=== PATIENT | female | born 1965 | race Caucasian/White ===

== ENCOUNTER → 2024-07-23 12:15 | Outpatient (REF) | payer BC, SELFPAY | LOC: HWWDC 12:15 | PROVIDERS: ATTENDING PHYSICIAN Internal Medicine | DX: Z12.31 Encounter for screening mammogram for malignant neoplasm of breast (principal) | CPT/HCPCS: 77063; 77067 ==

== ENCOUNTER 2024-08-08 10:09 | Emergency (ER) | payer BC, SELFPAY ==
[2024-08-08 10:10] VITALS: BP 198/103
[2024-08-08 10:48] LABS: ALT (SGPT) 172 U/L (0-35); AST (SGOT) 123 U/L (14-36); Albumin 4.7 g/dl (3.5-5.0); Alkaline Phosphatase 88 U/L (38-126); Blood Urea Nitrogen 16 mg/dl (7-17); Carbon Dioxide 25 mmol/L (22-30); Chloride 104 mmol/L (98-107); Glucose 119 mg/dl (70-99); Potassium 4.2 mmol/L (3.5-5.1); Sodium 139 mmol/L (135-145); Total Bilirubin 1.1 mg/dl (0.2-1.3); Total Protein 7.7 g/dl (6.3-8.2); eGFR > 60.00
--- NOTE | 2024-08-08 10:54 | ED.GENMED ---
History of Present Illness
General
Chief Complaint: Abnormal Lab Value
Time Seen by Provider: 08/08/24 10:35
History of Present Illness
History of Present Illness:
59-year-old female presents emergency department for evaluation of abnormal labs. She was seen by her primary care physician on Friday and had routine labs, was called this morning due to an elevated potassium of 6.3. She has no complaints. Does
not take any CARLOS inhibitors, ARB's, or diuretics.
Past History
Past History
ED Past Medical History: HTN and Hypothyroidism
ED Past Surgical History: None
Social History
Tobacco: Non-smoker
Alcohol: None
Living: with family
Review of Systems
Review of Systems
Allergies reviewed?: Yes
All Other Systems: ROS reviewed and negative except as documented in HPI and ROS
Phy Exam
Physical Exam
Physical Exam:
GEN: Well appearing, NAD, WDWN
HEENT: Oral mucosa moist, no scleral icterus
Cardiac: Regular rate
Lung: No respiratory distress, no tachypnea
MSK: No gross deformity or injuries
Skin: Good color, no pallor or jaundice, no rashes
Neuro: AO x3, moves all extremities freely
Psych: Calm, cooperative
Course
Orders/Labs/Results
Orders:
Orders
08/08/24 10:13
EKG [Electrocardiogram (*1)] Urgent
Reason for Study: Fatigue / Weakness
08/08/24 10:14
EKG- Treatment ONCE
08/08/24 10:21
Comprehensive Metabolic Panel Urgent
Abnormal Lab Results
08/08/24
10:21
Glucose 119 H mg/dl
(70-99)
AST 123 H U/L
(14-36)
ALT 172 H U/L
(0-35)
08/08/24 10:21
Vital Signs
Initial and Last Documented VS:
Initial Vital Signs
Temp Pulse Resp BP Pulse Ox
99 F 86 16 198/103 98
08/08/24 10:10 08/08/24 10:10 08/08/24 10:10 08/08/24 10:10 08/08/24 10:10
Last Documented Vital Signs
Temp Pulse Resp BP Pulse Ox
98.6 F 88 15 173/82 98
08/08/24 11:02 08/08/24 11:02 08/08/24 11:02 08/08/24 11:02 08/08/24 11:02
MDM/Problems Addressed
MDM/Problems Addressed:
Potassium likely falsely elevated due to hemolysis. No EKG changes and reassuring potassium level on repeat labs. She is notably hypertensive, likely anxiety mediated. Discussed mild transaminitis and need for follow-up
*Critical Care Note
Total Time (30-74mins, 75-104mins- exclusive of procedures): Not Applicable
ED Attending Note
-
Portions of this chart may have been created with voice recognition software.� Occasional wrong word or��sound alike� substitutions may have occurred due to the inherent limitations of voice recognition software.
Discharge Plan
Departure
Patient Disposition: Home (Routine Discharge)
Date of Disposition: 08/08/24
Time of Disposition: 10:55
Patient with high blood pressure during this ER visit?: Yes
Discharge Problem:
Transaminitis
Instructions: Liver panel
Referrals:
Caridad Sanford DO [Family Provider] -
Activity Restrictions/Additional Instructions:
Your liver enzymes were mildly elevated on lab work. This can be due to a number of factors including recent viral illness, recent alcohol intake, or fatty liver disease. Please follow-up with your primary care physician regarding these values
Interventions
Interventions:
*Risk Screen - Suicide Last Done: 08/08/24 10:12
*General Assessment Last Done: 08/08/24 10:10
*Neglect/Abuse Screening Last Done: 08/08/24 10:12
*Nursing Disposition Last Done: 08/08/24 11:02
Discharge Date and Time
Discharge Date/Time: 08/08/24 11:03
Print Language: ESTONIAN
[2024-08-08 11:02] VITALS: BP 173/82
== END 2024-08-08 11:03 | disposition home or self-care (01) ==
LOC: EMR 10:09
PROVIDERS: EMERGENCY PHYSICIAN Emergency Medicine; FAMILY PHYSICIAN Internal Medicine
DX: R74.01 Elevation of levels of liver transaminase levels (principal); E03.9 Hypothyroidism, unspecified; I10 Essential (primary) hypertension
CPT/HCPCS: 99283; 80053; 93005

== ENCOUNTER 2025-04-03 11:37 | Emergency (ER) | payer BC, SELFPAY ==
[2025-04-03 11:42] VITALS: BP 159/91
[2025-04-03 12:08] LABS: Hematocrit 40.8 % (37.0-47.0); Hemoglobin 14.4 g/dL (12.0-16.0); Mean Corp Hgb Conc. 35.3 g/dL (33.0-37.0); Mean Corpuscular Volume 91.7 fL (81.0-99.0); Nucleated Red Blood Cells % 0 %; Platelet Count 242 10^3/uL (130-400); Red Cell Dist. Width 12.0 % (11.5-14.5)
[2025-04-03 12:22] LABS: ALT (SGPT) 129 U/L (0-35); AST (SGOT) 92 U/L (14-36); Alkaline Phosphatase 74 U/L (38-126); Blood Urea Nitrogen 16 mg/dl (7-17); Calcium 9.4 mg/dl (8.4-10.2); Chloride 102 mmol/L (98-107); Glucose 112 mg/dl (70-99); Potassium 4.2 mmol/L (3.5-5.1); Sodium 139 mmol/L (135-145); Total Protein 7.8 g/dl (6.3-8.2); eGFR > 60.00
[2025-04-03 12:31] LABS: Albumin 4.5 g/dl (3.5-5.0); Carbon Dioxide 29 mmol/L (22-30)
[2025-04-03 12:33] LABS: Troponin I < 0.012 ng/ml
[2025-04-03] MEDS: TORADOL 15 MG IV (14:30)
[2025-04-03 15:11] LABS: D-Dimer 0.40 ug/mlFEU (0.00-0.50)
[2025-04-03 15:16] LABS: Troponin I < 0.012 ng/ml
[2025-04-03 16:27] VITALS: BP 155/88
[2025-04-03 17:50] VITALS: BP 132/74
--- NOTE | 2025-04-03 20:52 | ED.GENMED ---
History of Present Illness
General
Chief Complaint: Chest Pain
Source: patient
Exam Limitations: none
Time Seen by Provider: 04/03/25 13:31
Nursing documentation reviewed up to this point in time: agreed with
History of Present Illness
History of Present Illness:
Patient is a 60 y.o F who presents to the emergency department for evaluation of chest pain. Patient describes waking up with substernal chest discomfort yesterday and states pain has been waxing/waning since. She describes it almost as a spasm. She
reports shortness of breath during these �spasms�. No exertional or pleuritic nature. She does feel symptoms are worse with certain movements and reaching motions.
Today, she had some radiation into her left scapular region prompting visit to the emergency department.
No fevers or chills. No nausea, vomiting, or abdominal pain.
No history of CAD.
Patient apparently spends a lot of time lifting her grandchildren, and is wondering if she may have pulled a muscle.
She denies any recent travel or recent surgeries. No exogenous hormones. No personal or family history of blood clots or clotting disorders.
Past History
Past History
ED Past Medical History: HTN and Hypothyroidism
ED Past Surgical History: None
Social History
Tobacco: Non-smoker
Alcohol: None
Living: with family
Review of Systems
Review of Systems
Allergies reviewed?: Yes
All Other Systems: ROS reviewed and negative except as documented in HPI and ROS
Phy Exam
Physical Exam
Physical Exam:
Vitals: Hypertensive, otherwise vital signs stable.
General: Patient is well appearing, no acute distress. Nontoxic appearing
Skin: Warm and dry, no rashes or lesions
Head: Normocephalic, atraumatic
Eyes: Sclera nonicteric. EOMs intact. No nystagmus.
Throat: Protecting airway
Neck: Normal ROM, no cervical spine tenderness, no meningismus
Cardiac: Regular rate and rhythm, no murmurs. Mild reproducible tenderness in central chest and left scapula.No rash
Pulm: Normal respiratory effort, no wheezes, rales, rhonchi heard on exam
Abdomen: Abdomen soft and nontender. No CVA tenderness.
Extremities: No evidence of cyanosis or edema
Neuro: AAOx3. Grossly intact.
Psychiatric: Normal affect.
Scores
Heart Score for Chest Pain Patients
STEMI patient?: Not applicable
Course
Orders/Labs/Results
Orders:
Orders
04/03/25 11:39
EKG [Electrocardiogram (*1)] Stat
Reason for Study: Chest Pain
EKG- Treatment ONCE
04/03/25 11:49
Complete Blood Count/With Diff Urgent
Comprehensive Metabolic Panel Urgent
Troponin I Urgent
04/03/25 13:50
Ketorolac [Toradol] 15 mg IV NOW STA
US Abdomen Complete/Upper Urgent
Comment:
Reason For Exam: lower chest pain, elevated LFTs
04/03/25 14:30
D-Dimer Urgent
Troponin I Urgent
04/03/25 14:50
Electrocardiogram (*1) Urgent
Reason for Study: Chest Pain
EKG- Treatment ONCE
04/03/25 15:15
CR Chest - 2 Views Urgent
Comment:
Reason For Exam: Chest pain
Abnormal Lab Results
04/03/25
11:49
MCH 32.4 H pg
(27.0-31.0)
Absolute Monos (auto) 0.7 H 10^3/uL
(0.1-0.6)
Monocytes % 10.2 H %
(1.7-9.3)
Glucose 112 H mg/dl
(70-99)
AST 92 H U/L
(14-36)
ALT 129 H U/L
(0-35)
04/03/25 11:49
04/03/25 11:49
Vital Signs
Initial and Last Documented VS:
Initial Vital Signs
Temp Pulse Resp BP Pulse Ox
99.0 F 70 18 159/91 99
04/03/25 11:42 04/03/25 11:42 04/03/25 11:42 04/03/25 11:42 04/03/25 11:42
Last Documented Vital Signs
Temp Pulse Resp BP Pulse Ox
99.0 F 68 20 132/74 99
04/03/25 11:42 04/03/25 17:50 04/03/25 17:50 04/03/25 17:50 04/03/25 20:52
MDM/Problems Addressed
Differential Diagnosis Includes:
Not limited to: muscle strain /spasm, zoster, pleurisy, biliary colic, ACS, pulmomnary embolism
MDM/Problems Addressed:
60-year-old female presented with one day of intermittent substernal chest pain, described as radiating to the left scapular region. Pain is non-exertional, not pleuritic, and worsens with certain movements. Denies GI symptoms, shortness of breath,
or palpitations.
Vital signs stable. Cardiopulmonary exam unremarkable. Abdomen soft, non-tender, negative Boyd�s sign. Mild reproducible tenderness noted in the central chest without overlying rash.
ED workup included basic labs, serial troponins, D-dimer, and chest X-ray � all within normal limits. Mild transaminitis noted. Abdominal ultrasound obtained due to elevated LFTs, showing mild hepatomegaly without evidence of acute hepatobiliary
pathology.
Patient had significant improvement in symptoms with NSAID therapy (Toradol), further supporting a musculoskeletal etiology. No clinical or diagnostic evidence of serious cardiac, pulmonary, or intra-abdominal pathology.
Assessment favors musculoskeletal chest wall pain. Patient is stable for discharge with conservative management. Advised to follow up with primary care for further monitoring of LFTs and ongoing symptoms. Strict return precautions reviewed and
patient is comfortable with plan.
Chronic conditions affecting care:
HTN
Acute Exacerbation and/or Progression of Chronic Illness:
N/A
*Radiology
Radiology exam reviewed: preliminary read by ED provider (Chest xray reviewed by me - no acute abnormalities)
*Pulse Oximetry
SaO2: 99
Oxygen Mode of Delivery: Room air
Patient hypoxic: no
*EKG
Interpreted by ED Provider?: Yes
EKG Intrepretation Date: 04/03/25
Interpretation: normal
Heart Rate: 63
Rate: normal
Rhythm: sinus
Pearson: normal axis
Interval: normal QT interval
QRS Pattern: normal QRS
Ischemia: no ischemia
*Theatre Arts Professor Interpretation
Rate: normal
Interpretation: normal
Heart Rate: 64
Rhythm: sinus
*Critical Care Note
Total Time (30-74mins, 75-104mins- exclusive of procedures): Not Applicable
ED Attending Note
-
Portions of this chart may have been created with voice recognition software.� Occasional wrong word or��sound alike� substitutions may have occurred due to the inherent limitations of voice recognition software.
Discharge Plan
Departure
Patient Disposition: Home (Routine Discharge)
Date of Disposition: 04/03/25
Time of Disposition: 17:19
Patient with high blood pressure during this ER visit?: Yes
Condition: Good
Discharge Problem:
Chest pain
Instructions: Chest Pain That Is Not Caused by the Heart (DC), Chest pain (DC), BLOOD PRESSURE
Referrals:
Caridad Sanford DO [Family Provider, Internal Medicine] - Follow up in 5-7 days
Activity Restrictions/Additional Instructions:
RETURN TO THE EMERGENCY DEPARTMENT WITH ANY PERSISTENT/WORSENING CHEST PAIN, SHORTNESS OF BREATH/DIFFICULTY BREATHING, FEVER OR COUGH, LIGHTHEADEDNESS/DIZZINESS OR SEVERE BACK PAIN, WORSENING IN CURRENT SYMPTOMS, OR ANY OTHER CONCERNS
- As discussed�your workup in the emergency department showed mildly elevated liver function and evidence of enlarged liver on ultrasound. Otherwise your lab work, cardiac enzymes, and chest x-ray were unremarkable.
- I suspect your symptoms are likely musculoskeletal in nature. Please continue to take Motrin/Tylenol at home as needed for pain. Limit any activities that further aggravate your discomfort
- Follow-up with primary care for further evaluation/management to ensure your symptoms are improving
Monitor your symptoms closely and return to the emergency department with any acute worsening/new symptoms or any other concerns
Interventions
Interventions:
*Risk Screen - Suicide Last Done: 04/03/25 11:42
*General Assessment Last Done: 04/03/25 11:42
*Nursing Disposition Last Done: 04/03/25 17:50
ED- Cardiac Assessment Last Done: 04/03/25 13:22
Discharge Date and Time
Discharge Date/Time: 04/03/25 18:16
Print Language: AZERI
== END 2025-04-03 18:16 | disposition home or self-care (01) ==
LOC: EMR 11:37
PROVIDERS: Physician Assistant; EMERGENCY PHYSICIAN Student in an Organized Health Care Education/Training Program; FAMILY PHYSICIAN Internal Medicine
DX: R07.89 Other chest pain (principal); I10 Essential (primary) hypertension; E03.9 Hypothyroidism, unspecified
CPT/HCPCS: 99285; 96374; 71046; 76700; 80053; 84484; 85025; 85379; 93005